=== PATIENT | female | born 1965 | race Caucasian/White ===

== ENCOUNTER → 2016-11-03 | Outpatient (CLI) | payer OTHER ==
[~2016-11-03] MED LIST: AMBIEN 10MG10 MG PO; AMOXICILLIN 8751 TAB PO; CALCIUM 600600 M1 PO; COQ(10)1010 MG PO; CYMBALTA 60MG60 MG PO; DESYREL 50MG50 MG PO; FISH OIL1000 MG PO; FLEXERIL 1010 MG/TAB PO; KLONOPIN 0.5MG0.5 MG PO; LAMICTAL 100MG100 MG PO; LAMICTAL 25MG T25 MG PO; LIQUID MAGNESI400 MG PO; LOFIBRA54 MG PO; PAMELOR 25MG25 MG PO; PERCOCET 325 MG1 TA2 PO; PREVACID 30MG30 M1 PO; PRIL40; TOPAMAX50 MG PO; TOPROL XL 25MG25 MG PO; VITAMIN B COMPL1 T16 PO; VITAMIN D2000 I1 PO; VITAMINC1000TA PO; VIVELLE0.1 MG/24 TD; WELLBUTRIN XL150 MG PO; ZOFRAN 4MG T4 MG/TAB PO
== END ==
LOC: BHSO 10:17
DX: F31.81 Bipolar II disorder (principal)

== ENCOUNTER → 2017-03-28 | Outpatient (CLI) | payer OTHER | LOC: MC.RAD 13:20 | DX: Z12.31 Encounter for screening mammogram for malignant neoplasm of breast (principal) ==

== ENCOUNTER → 2017-06-01 | Outpatient (CLI) | payer OTHER | LOC: BHSO 09:14 | DX: F31.81 Bipolar II disorder (principal) ==

== ENCOUNTER → 2017-12-03 | Outpatient (CLI) | payer OTHER | LOC: BHSO 14:02 | DX: F31.81 Bipolar II disorder (principal) | CPT/HCPCS: G0463 ==

== ENCOUNTER 2018-08-12 18:37 | Emergency (ER) | payer SELFPAY ==
[~2018-08-12] VITALS: Ht 162.6 cm; Wt 85.9 kg
[2018-08-12 18:45] VITALS: TEMP 97.3
[2018-08-12 19:37] LABS: COLLECTION METHOD CLEAN CATCH
[2018-08-12 19:39] LABS: BASO # 0.1 (0.0-0.2); BASO % 0.8 % (0.0-2.0); EOS # 0.2 (0.0-0.7); EOS % 2.4 % (0-4.0); GRAN # 4.3 (1.4-6.5); GRAN % 55.9 % (42.2-75.2); HEMATOCRIT 37.7 % (37.0-47.0); HEMOGLOBIN 13.3 g/dl (12.5-16.0); LYMPH # 2.5 (1.2-3.4); LYMPH % 32.5 % (20.0-51.0); MEAN CELL VOLUME 87 fl (80.0-100.0); MEAN CORPUSCULAR HEMOGLOBIN 31 pg (27.0-31.0); MEAN CORPUSCULAR HGB CONC 35 g/dl (33.0-37.0); MEAN PLATELET VOLUME 8.1 fl (7.4-10.4); MONO # 0.6 (0.1-0.6); MONO % 7.2 % (1.7-9.3); PLATELET COUNT 253 K/mm3 (130-400); RED BLOOD COUNT 4.34 M/mm3 (4.10-5.30); REDCELL DISTRIBUTION WIDTH-CV 11.7 % (11.5-14.5)
[2018-08-12 19:43] LABS: MUCOUS Present /lpf; PH 6 (5-8); SQUAMOUS EPITHELIAL 0-2 /hpf; URINE APPEARANCE Clear; URINE BACTERIA Rare /hpf; URINE BILIRUBIN Negative (NEGATIVE); URINE BLOOD Negative (NEGATIVE); URINE COLOR Yellow; URINE GLUCOSE Negative (NEGATIVE); URINE KETONE Negative (NEGATIVE); URINE LEUKOCYTE ESTERASE Negative (NEGATIVE); URINE NITRATE Negative (NEGATIVE); URINE PROTEIN(semi-quant) Negative (NEGATIVE); URINE RBC 0-2 /hpf; URINE UROBILINOGEN Negative (NEGATIVE)
[2018-08-12 19:50] LABS: TRICYCLIC ANTIDEPRESS URINE POSITIVE
[2018-08-12 19:52] LABS: ACETAMINOPHEN < 10 ug/mL (10-30); ALANINE AMINOTRANSFERASE 117 U/L (9-52); ALBUMIN 4.1 gm/dL (3.5-5.0); ALCOHOL(ethanol),MEDICAL < 10 mg/dL; ALKALINE PHOSPHATASE 53 U/L (50-136); ANION GAP 5 mmol/L (7-16); AST,SGOT 122 U/L (15-37); BILIRUBIN,TOTAL 0.2 mg/dL (0.0-1.0); BLOOD UREA NITROGEN 10 mg/dL (7-17); CALCIUM 9.1 mg/dL (8.4-10.2); CARBON DIOXIDE 27 mmol/L (22-30); CHLORIDE 108 mmol/L (98-107); GLUCOSE 105 mg/dL (74-106); SALICYLATE < 1.0 mg/dL; SODIUM 140 mmol/L (137-145); TOTAL PROTEIN 6.9 gm/dL (6.4-8.2)
[2018-08-13 10:40] VITALS: BP 105/75; PULSE 82
== END 2018-08-13 10:40 ==
LOC: COL.ER 18:37
PROVIDERS: Emergency Medicine; Nurse Practitioner
DX: R45.851 Suicidal ideations (principal); F41.9 Anxiety disorder, unspecified; F32.9 Major depressive disorder, single episode, unspecified; M79.7 Fibromyalgia; F60.3 Borderline personality disorder; E78.1 Pure hyperglyceridemia; F17.210 Nicotine dependence, cigarettes, uncomplicated; Z91.5 Personal history of self-harm; Z79.891 Long term (current) use of opiate analgesic; Z88.0 Allergy status to penicillin; Z88.4 Allergy status to anesthetic agent

== ENCOUNTER → 2018-08-23 | Outpatient (CLI) | payer SELFPAY | LOC: BHSO 09:31 | DX: F31.32 Bipolar disorder, current episode depressed, moderate (principal) | CPT/HCPCS: G0463 ==

== ENCOUNTER 2018-09-13 14:31 | Outpatient (RCR) | payer SELFPAY | END 2018-12-12 | disposition home or self-care (01) | LOC: MKS.ESL.OT | DX: G56.22 Lesion of ulnar nerve, left upper limb (principal) ==

== ENCOUNTER → 2018-10-04 | Outpatient (CLI) | payer SELFPAY | LOC: BHSO 12:57 | DX: F31.81 Bipolar II disorder (principal) | CPT/HCPCS: G0463 ==

== ENCOUNTER → 2018-11-15 | Outpatient (CLI) | payer SELFPAY | LOC: BHSO 14:14 | DX: F31.81 Bipolar II disorder (principal) | CPT/HCPCS: G0463 ==

== ENCOUNTER → 2019-01-06 | Outpatient (CLI) | payer SELFPAY | LOC: BHSO 13:13 | DX: F31.81 Bipolar II disorder (principal) | CPT/HCPCS: G0463 ==